=== PATIENT | male | born 1965 | race Caucasian/White ===

== ENCOUNTER 2017-02-14 21:25 | Emergency (ER) | payer MEDICAID ==
[~2017-02-14] VITALS: Ht 165.1 cm; Wt 69.9 kg
[~2017-02-14 21:25] MED LIST: NORCO1 E1 ORAL
[2017-02-14] MEDS ORDERED: VALPROIC A500 MG/10 ORAL (21:39)
[2017-02-14] MEDS ORDERED: VALPROIC ACID250 MG PO (21:39)
[2017-02-14] MEDS ORDERED: PHENOBARBITAL30 MG ORAL (21:39)
[2017-02-14] MEDS ORDERED: VIMPAT200 MG PO (21:39)
[2017-02-14 21:40] VITALS: BP 119/73
--- NOTE | 2017-02-14 21:55 | Emergency Room Report ---
History of Present Illness General Chief Complaint: Head Injury Source: Patient, Family Member Present Illness HPI Is a 52-year-old male with a long-standing history of seizure. He get seizure about once a week per his . He is currently taking valproic acid, phenobarbital, and Vimpat. He presents with head injury from a seizure. This afternoon he had a brief 3 minute tonic-clonic seizure activity. He felt his head and hit his head on the floor. Sustained a laceration to the back of his head. No other injury. No tightness of bowel or urine. No oral trauma. He is compliant with his medication per his . No alcohol or drug use. Allergies: Coded Allergies: NO KNOWN ALLERGIES (Unverified Allergy, Unknown, 06/10/15) Patient History Past Medical History: see triage record, old chart reviewed, seizures Past Surgical History: other Pertinent Family History: none Social History: Denies: smoking Immunizations: other Reviewed Nursing Documentation: PMH: Agreed, PSxH: Agreed Nursing Documentation-PM Past Medical History: No History, Except For Hx Seizures: Yes - epilepsy Review of Systems Eye: Denies: eye pain, blurred vision ENT: Denies: ear pain, nose congestion, throat swelling Respiratory: Denies: cough, shortness of breath Cardiovascular: Denies: chest pain, palpitations Gastrointestinal: Denies: abdominal pain, diarrhea, nausea, vomiting Musculoskeletal: Denies: back pain, joint pain Skin: Denies: rash Neurological: Denies: headache, numbness Endocrine: Denies: increased thirst, increased urine Hematologic/Lymphatic: Denies: easy bruising All Other Systems: negative except mentioned in HPI Physical Exam Vital Signs Date Time Temp Pulse Resp B/P (MAP) Pulse Ox O2 Delivery O2 Flow Rate FiO2 02/14/17 21:33 99.0 82 18 119/73 100 Room Air vitals normal Sp02 EP Interpretation: reviewed, normal General Appearance: well appearing, no apparent distress, alert Head: normocephalic, other - 2 cm laceration to the occiput. No foreign body. Eyes: bilateral eye PERRL, bilateral eye EOMI ENT: hearing grossly normal, normal pharynx Neck: full range of motion, supple, no meningismus Respiratory: chest non-tender, lungs clear, normal breath sounds Cardiovascular #1: regular rate, rhythm, no murmur Gastrointestinal: normal bowel sounds, non tender, no mass, no organomegaly, no bruit, non-distended Musculoskeletal: back normal, gait/station normal, normal range of motion Psychiatric: mood/affect normal Skin: warm/dry Procedures Laceration/Wound Repair Laceration/Wound Repair : Consent: Verbal Wound Location: head Wound's Depth, Shape: into muscle, linear Wound Length (cm): 3 Wound Explored: clean Irrigated w/ Saline (ccs): 500 Patient Tolerated: Well Complications: None Progress I placed 3 purvi. Patient tolerated procedure without a problem. Medical Decision Making Diagnostic Impression: Primary Impression: Acute head injury Qualified Codes: S09.90XA - Unspecified injury of head, initial encounter Additional Impression: Seizure disorder ER Course This patient presents with recurrent seizure. He does not drive. I see no need for DMV report. CT scan negative for intracranial bleed or fracture. We' ll discharge home. He is scheduled to see a new neurologist next week. CT/MRI/US Diagnostic Results CT/MRI/US Diagnostic Results : Imaging Test Ordered: CT head Impression read by radiologist. This patient presents with recurrent seizure. He does not drive. I see no need for DMV report. CT scan negative for intracranial bleed or fracture. We' ll discharge home. He is scheduled to see a new neurologist next week. Last Vital Signs Date Time Temp Pulse Resp B/P (MAP) Pulse Ox O2 Delivery O2 Flow Rate FiO2 02/14/17 21:33 99.0 82 18 119/73 100 Room Air Status: improved Disposition: HOME, SELF-CARE Condition: Stable Patient Instructions: HEAD INJURY, No Wake-Up (Adult) Additional Instructions: Followup with your neurologist as scheduled. Return if symptom worsen. DAGOBERTO RBOB M.D. Feb 14, 2017 21:55
[2017-02-14 23:20] VITALS: BP 126/72
--- NOTE | 2017-02-15 10:46 | Diagnostic Imaging Report ---
Indication: Headache Technique: Contiguous 5 mm thick transaxial imaging of the head obtained in a Siemens Sensation [address] scanner. Soft tissue and bone windows generated. Total Dose length Product (DLP): [address] Dose Index Volume (CTDIvol): 70.38, 0.15 mGy Comparison: 06/10/15 Findings: There is mild prominence of the ventricles, basal cisterns, and cerebral sulci consistent with atrophy. Mild, nonspecific, white matter hypoattenuation is noted throughout the brain consistent with chronic small vessel disease. There is no midline shift, edema, acute hemorrhage, mass effect, or abnormal extra-axial fluid collections. Soft tissue swelling demonstrated in the left parietal region. Laceration and skin purvi noted. Impression: No acute intracranial bleed, mass effect or edema. Mild atrophy of the brain. Nonspecific white matter hypoattenuation probably due to chronic small vessel disease. Left scalp laceration The CT scanner at [facility] is accredited by the [employer] and the scans are performed using dose optimization techniques as appropriate to a performed exam including Automatic Exposure control.
== END 2017-02-14 23:20 | disposition home or self-care (01) ==
LOC: EMR 21:50
DX: S09.90XA Unspecified injury of head, initial encounter (principal); G40.909 Epilepsy, unspecified, not intractable, without status epilepticus; W19.XXXA Unspecified fall, initial encounter; Y93.9 Activity, unspecified; Y92.9 Unspecified place or not applicable; G31.9 Degenerative disease of nervous system, unspecified
CPT/HCPCS: 12002; 36415; 70450; 80164; 80184; 99284; Z7502

== ENCOUNTER 2017-02-19 18:28 | Emergency (ER) | payer MEDICAID ==
[~2017-02-19] VITALS: Ht 165.1 cm; Wt 77.1 kg
[~2017-02-19 18:28] MED LIST changes: +PHENOBARBITAL30 MG ORAL; +VALPROIC A500 MG/10 ORAL; +VALPROIC ACID250 MG PO; +VIMPAT200 MG PO
[2017-02-19 19:26] VITALS: BP 105/70
--- NOTE | 2017-02-19 20:35 | Emergency Room Report ---
History of Present Illness General Chief Complaint: Wound Recheck/Suture Removal Source: Patient Present Illness [facility] The patient is a 52-year-old male presenting for staple removal. He was seen in this emergency department 5 days prior for a laceration of the head. 3 purvi were placed. He denies any complications including any pain at this time or bleeding. Denies any other symptoms including N, V, F, chills, dizziness. PATEL Allergies: Coded Allergies: NO KNOWN ALLERGIES (Unverified Allergy, Unknown, 06/10/15) Patient History Past Medical History: see triage record Pertinent Family History: none Reviewed Nursing Documentation: PMH: Agreed, PSxH: Agreed Nursing Documentation-PMH Past Medical History: No Stated History Hx Seizures: Yes - epilepsy Review of Systems All Other Systems: negative except mentioned in HPI Physical Exam Vital Signs Date Time Temp Pulse Resp B/P (MAP) Pulse Ox O2 Delivery O2 Flow Rate FiO2 02/19/17 18:33 97.3 74 17 105/70 97 Room Air Sp02 EP Interpretation: reviewed, normal General Appearance: no apparent distress, alert, GCS 15, non-toxic Head: normocephalic, other - 3 purvi posterior scalp Eyes: bilateral eye normal inspection, bilateral eye PERRL ENT: hearing grossly normal, normal pharynx, no angioedema, normal voice Musculoskeletal: back normal, gait/station normal, normal range of motion, non- tender Neurologic: alert, oriented x3, responsive, motor strength/tone normal, sensory intact, speech normal Psychiatric: judgement/insight normal, memory normal, mood/affect normal, no suicidal/homicidal ideation Skin: normal color, no rash, wd healing/no infection noted Medical Decision Making PA Attestation Dr. Olmstead is my supervising physician. Patient management was discussed with my supervising physician Diagnostic Impression: Primary Impression: Removal of purvi Additional Impression: Encounter for wound re-check ER Course The patient is a 52-year-old male presenting for staple removal Differential diagnosis considered: Wound infection, nonhealing wound, cellulitis , abscess Physical exam reveals 3 purvi placed on the posterior scalp. Was well approximated. No bleeding. 3 [place] removed without any complications. The patient will continue to keep the area clean and dry. He will follow up with primary care Last Vital Signs Date Time Temp Pulse Resp B/P (MAP) Pulse Ox O2 Delivery O2 Flow Rate FiO2 02/19/17 19:26 97.3 74 17 105/70 97 Room Air Status: improved Disposition: HOME, SELF-CARE Condition: Improved Referrals: ANN VIRK (PCP) Patient Instructions: Wound Closure Removal, Wound Check Additional Instructions: I discussed my findings with the patient. All questions and concerns have been answered. Treatment and medication compliance have been addressed. I advised the patient that they need to follow up with PMD in 3-5 days. Return to ED if symptoms worsen, new symptoms arise, or if needed for any reason. Patient verbalized understanding of discharge instructions. MIKEY RYAN Feb 19, 2017 20:35
== END 2017-02-19 19:26 | disposition home or self-care (01) ==
LOC: EMR 19:10
DX: Z48.02 Encounter for removal of sutures (principal)
CPT/HCPCS: 99281

== ENCOUNTER 2017-08-11 12:24 | Emergency (ER) | payer MEDICAID ==
[~2017-08-11] VITALS: Ht 175.3 cm; Wt 68.0 kg
[2017-08-11 12:55] VITALS: BP 132/71
[2017-08-11] MEDS ORDERED: Lidocaine 1% 10mg/ml/Epi 0.005mg/ml 30ml vial INJ ONE (13:00)
[2017-08-11 13:45] LABS: BASOPHILS % (AUTO) 0.6 % (0.0-2.0); EOSINOPHILS % (AUTO) 0.6 % (0.0-3.0); HEMATOCRIT 41.3 % (42.0-52.0); HEMOGLOBIN 14.6 G/DL (14.2-18.0); LYMPHOCYTES % (AUTO) 42.5 % (20.0-45.0); MEAN CORPUSCULAR VOLUME 88 FL (80-99); MONOCYTES % (AUTO) 13.7 % (1.0-10.0); NEUTROPHILS % (AUTO) 42.5 % (45.0-75.0); PLATELET COUNT 186 K/UL (150-450); RED CELL DISTRIBUTION WIDTH 10.4 % (11.6-14.8); WHITE BLOOD COUNT 4.9 K/UL (4.8-10.8)
[2017-08-11] MEDS ORDERED: ceFAZolin 1gm/50ml Premix 50 ML IV ONE (13:45)
--- NOTE | 2017-08-11 14:15 | Diagnostic Imaging Report ---
Indication: Pain status post fall Technique: Continuous helical CT scanning of the head was performed utilizing automated exposure control without intravenous contrast material. Axial and coronal reconstructions were obtained. Comparison: 02/14/2017 CT dose: Total DLP 1523.88 mGycm; CTDI vol 70.38 mGy Findings: There is no acute intracranial hemorrhage, mass effect or cortical edema. The ventricles, cisterns and sulci are mildly prominent consistent with atrophy. Periventricular hypoattenuation is seen, a nonspecific finding. Visualized mastoid air cells and paranasal sinuses are unremarkable. No focal lesions of the bony calvarium seen. Question soft tissue laceration versus artifact in the scalp the high right vertex. Correlation with physical exam. IMPRESSION: No evidence of acute intracranial hemorrhage, mass effect or cortical edema. No depressed skull fracture. Likely scalp laceration in the right vertex (series 5 image #31). Correlate with physical exam. Atrophy and nonspecific periventricular hypoattenuation suggestive of chronic ischemic microvascular changes. The CT scanner at [facility] is accredited by the [employer] and the scans are performed using protocols designed to limit radiation exposure to as low as reasonably achievable to attain images of sufficient resolution adequate for diagnostic evaluation.
[2017-08-11 14:19] LABS: ANION GAP 5 mmol/L (5-15); BLOOD UREA NITROGEN 12 mg/dL (7-18); CALCIUM 8.8 MG/DL (8.5-10.1); CARBON DIOXIDE 31 MMOL/L (21-32); CHLORIDE 91 MMOL/L (98-107); CREATININE 0.9 MG/DL (0.55-1.30); POTASSIUM 4.4 MMOL/L (3.5-5.1); SODIUM 127 MMOL/L (136-145)
[2017-08-11 14:25] LABS: ALANINE AMINOTRANSFERASE 17 U/L (12-78); ALBUMIN 3.6 G/DL (3.4-5.0); ALBUMIN/GLOBULIN RATIO 0.8 (1.0-2.7); ALKALINE PHOSPHATASE 67 U/L (46-116); ASPARTATE AMINO TRANSFERASE 18 U/L (15-37); BILIRUBIN,TOTAL 0.5 MG/DL (0.2-1.0)
[2017-08-11] MEDS ORDERED: ceFAZolin sod 1 GM in NS 55 ML IVP ONE (14:30)
[2017-08-11] MEDS ORDERED: KEFLEX500 MG ORAL (14:37)
[2017-08-11 15:20] VITALS: BP 119/77
--- NOTE | 2017-08-13 13:53 | Emergency Room Report ---
History of Present Illness General Chief Complaint: Head Injury Source: Patient Present Illness HPI Patient 52-year-old male who presented after head injury. The patient prior history of seizure disorder the reportedly had struck the top of his head on a corner. Patient had been taking Depakote as well as phenobarbital for seizures Allergies: Coded Allergies: NO KNOWN ALLERGIES (Unverified Allergy, Unknown, 06/10/15) Patient History Past Medical History: see triage record Reviewed Nursing Documentation: PMH: Agreed, PSxH: Agreed Nursing Documentation-PMH Past Medical History: No History, Except For Hx Seizures: Yes - epilepsy Review of Systems All Other Systems: negative except mentioned in HPI Physical Exam Vital Signs Date Time Temp Pulse Resp B/P (MAP) Pulse Ox O2 Delivery O2 Flow Rate FiO2 08/11/17 12:39 97.8 74 18 114/79 99 Room Air 97.9 Sp02 EP Interpretation: reviewed, normal General Appearance: normal inspection, well appearing, no apparent distress, alert, other - slow speech Head: atraumatic ENT: normal ENT inspection, hearing grossly normal, normal voice Neck: normal inspection, full range of motion, supple, no bony tend Respiratory: normal inspection, lungs clear, normal breath sounds, no respiratory distress, no retraction, no wheezing Cardiovascular #1: regular rate, rhythm, no edema Gastrointestinal: normal inspection, normal bowel sounds, non tender, soft, no guarding, no hernia Genitourinary: no CVA tenderness Musculoskeletal: normal inspection, back normal, normal range of motion Neurologic: normal inspection, alert, responsive, clinical laboratory science professor III-XII nml as tested, motor strength/tone normal, speech normal Psychiatric: normal inspection, judgement/insight normal, mood/affect normal Skin: no rash, laceration - scalp laceration 10 cm Procedures Laceration/Wound Repair Laceration/Wound Repair : Consent: Emergent Wound Location: head Wound's Depth, Shape: into muscle, linear Wound Length (cm): 10 Wound Explored: foreign body removed Irrigated w/ Saline (ccs): 200 Betadine Prep?: Yes Anesthesia: Lidocaine w/ Epi Volume Anesthetic (ccs): 8 Wound Debrided: minimal Wound Repaired With: purvi - 8 Patient Tolerated: Well Complications: None Medical Decision Making Diagnostic Impression: Primary Impression: Laceration of scalp Additional Impression: Seizure disorder ER Course Patient presented after a seizure. Differential diagnoses include was not limited to fracture, intracranial hemorrhage, foreign body, medication noncompliance among others.Because of complexity of patient's case laboratory testing and imaging studies were ordered. I laboratory study showed adequate levels of patient's anticonvulsant. The patient's wound was copiously irrigated as a foreign material is noted. Foreign material was removed with forceps. CT the head read by radiology showed no evidence of hemorrhage. The patient is advised to follow up with primary care doctor in 1-2 days. Patient is advised to return if any worsening condition or if any changes in status that are concerning. This report is dictated with [email or web address] drill instructor software which may occasionally lead to discrepancies related to use of this software. Labs Test 08/11/17 13:19 White Blood Count 4.9 K/UL (4.8-10.8) Red Blood Count 4.70 M/UL (4.70-6.10) Hemoglobin 14.6 G/DL (14.2-18.0) Hematocrit 41.3 % (42.0-52.0) Mean Corpuscular Volume 88 FL (80-99) Mean Corpuscular Hemoglobin 31.0 PG (27.0-31.0) Mean Corpuscular Hemoglobin Concent 35.2 G/DL (32.0-36.0) Red Cell Distribution Width 10.4 % (11.6-14.8) Platelet Count 186 K/UL (150-450) Mean Platelet Volume 5.9 FL (6.5-10.1) Neutrophils (%) (Auto) 42.5 % (45.0-75.0) Lymphocytes (%) (Auto) 42.5 % (20.0-45.0) Monocytes (%) (Auto) 13.7 % (1.0-10.0) Eosinophils (%) (Auto) 0.6 % (0.0-3.0) Basophils (%) (Auto) 0.6 % (0.0-2.0) Sodium Level 127 MMOL/L (136-145) Potassium Level 4.4 MMOL/L (3.5-5.1) Chloride Level 91 MMOL/L (98-107) Carbon Dioxide Level 31 MMOL/L (21-32) Anion Gap 5 mmol/L (5-15) Blood Urea Nitrogen 12 mg/dL (7-18) Creatinine 0.9 MG/DL (0.55-1.30) Estimat Glomerular Filtration Rate > 60 mL/min (>60) Glucose Level 68 MG/DL (74-106) Calcium Level 8.8 MG/DL (8.5-10.1) Total Bilirubin 0.5 MG/DL (0.2-1.0) Aspartate Amino Transf (AST/SGOT) 18 U/L (15-37) Alanine Aminotransferase (ALT/SGPT) 17 U/L (12-78) Alkaline Phosphatase 67 U/L (46-116) Total Protein 7.9 G/DL (6.4-8.2) Albumin 3.6 G/DL (3.4-5.0) Globulin 4.3 g/dL Albumin/Globulin Ratio 0.8 (1.0-2.7) Valproic Acid (Depakene) Level 105 MCG/ML (50-100) Phenobarbital Level 23.1 ug/mL (15-40) Last Vital Signs Date Time Temp Pulse Resp B/P (MAP) Pulse Ox O2 Delivery O2 Flow Rate FiO2 08/11/17 15:20 97.8 76 18 119/77 100 Room Air Status: improved Disposition: HOME, SELF-CARE Condition: Stable Scripts Cephalexin* (KEFLEX*) 500 Mg Capsule 500 MG ORAL Q6H, #28 CAP 0 Refills Prov: Mendez Blair 08/11/17 Patient Instructions: Laceration Care, Adult Mendez Blair Aug 13, 2017 13:53
== END 2017-08-11 15:23 | disposition home or self-care (01) ==
LOC: EMR 13:46
DX: S01.02XA Laceration with foreign body of scalp, initial encounter (principal); W22.8XXA Striking against or struck by other objects, initial encounter; Y92.89 Other specified places as the place of occurrence of the external cause; G40.909 Epilepsy, unspecified, not intractable, without status epilepticus
CPT/HCPCS: 12034; 36415; 70450; 80053; 80164; 80184; 85025; 96374; 99284; J0690; Z7502

== ENCOUNTER 2017-09-09 12:00 | Emergency (ER) | payer MEDICAID ==
[~2017-09-09] VITALS: Ht 165.1 cm; Wt 68.0 kg
[~2017-09-09 12:00] MED LIST changes: +KEFLEX500 MG ORAL
--- NOTE | 2017-09-09 12:16 | Emergency Room Report ---
History of Present Illness General Chief Complaint: To Be Triaged Present Illness HPI Patient presents to the emergency department for staple removal from previously repaired right-sided scalp laceration. Patient denies pain at this time denies discharge, erythema, tenderness, fevers, chills. States that Purvi were placed almost one month ago. He is up-to-date with vaccinations. Allergies: Coded Allergies: NO KNOWN ALLERGIES (Unverified Allergy, Unknown, 06/10/15) Patient History Past Medical History: see triage record Past Surgical History: none Pertinent Family History: none Immunizations: UTD Reviewed Nursing Documentation: PMH: Agreed; PSxH: Agreed Nursing Documentation-PMH Hx Seizures: Yes - epilepsy Review of Systems All Other Systems: negative except mentioned in HPI Physical Exam Sp02 EP Interpretation: reviewed, normal General Appearance: no apparent distress, alert, GCS 15, non-toxic Head: normocephalic, atraumatic - healed laceration of the right parietal area ENT: hearing grossly normal, normal voice Neck: full range of motion Respiratory: lungs clear, normal breath sounds, speaking full sentences Cardiovascular #1: regular rate, rhythm Gastrointestinal: normal bowel sounds, non tender, soft Musculoskeletal: back normal, gait/station normal, normal range of motion, non- tender Neurologic: alert, oriented x3, responsive, motor strength/tone normal, sensory intact, normal gait, speech normal, grossly normal Psychiatric: judgement/insight normal Skin: normal color, no rash, warm/dry, well hydrated, wd healing/no infection noted - healed laceration of the right parietal area Medical Decision Making PA Attestation Dr. Smith is my supervising Physician whom patient management has been discussed with. Diagnostic Impression: Primary Impression: Removal of purvi ER Course Patient presents to the emergency department for staple removal from previously repaired right-sided scalp laceration. Patient denies pain at this time denies discharge, erythema, tenderness, fevers, chills. States that [place] were placed almost one month ago. He is up-to-date with vaccinations. Ddx considered but are not limited to laceration, tendon injury, cellulitis, dehiscence. Vital signs: are WNL, pt. is afebrile H&PE are most consistent with: healed laceration of the right parietal area ORDERS: none required at this time, the diagnosis is clinical ED INTERVENTIONS: - 7 [place]/ removed. DISCHARGE: At this time pt. is stable for d/c to home. Will provide printed patient care instructions, and any necessary prescriptions. Care plan and follow up instructions have been discussed with the patient prior to discharge. Disposition: HOME, SELF-CARE Condition: Stable Scripts Bacitracin/Polymyxin B Sulfate (BACITRACIN-POLYMYXIN OINTMENT) 28.35 Gm Oint...g. 1 APPLIC TP BID, #28.3 GM Prov: Jo Johnson 09/09/17 Patient Instructions: Wound Closure Removal Additional Instructions: Take medications as directed. Follow up with a Primary Care Provider in 3-5 days, even if your symptoms have resolved. --Please review list of primary care clinics, if you do not already have a primary care provider Return sooner to ED if new symptoms occur, or current symptoms become worse. - Please note that this Emergency Department Report was dictated using [employer] Humanityautomatic cigar wrapper tender technology software, occasionally this can lead to erroneous entry secondary to interpretation by the dictation equipment. Jo Johnson Sep 09, 2017 12:13
[2017-09-09] MEDS ORDERED: BACITRACIN-P28.35 GM TP (12:18)
[2017-09-09 12:30] VITALS: BP 132/81
[2017-09-09 12:37] VITALS: BP 132/81
== END 2017-09-09 12:30 | disposition home or self-care (01) ==
LOC: EMR 12:20
DX: S01.01XD Laceration without foreign body of scalp, subsequent encounter (principal); X58.XXXD Exposure to other specified factors, subsequent encounter; Z48.02 Encounter for removal of sutures
CPT/HCPCS: 99283